=== PATIENT | female | born 1960 | race Caucasian/White ===

== ENCOUNTER 2021-12-03 23:03 | Emergency (ER) | payer OTHER ==
[2021-12-03 23:18] VITALS: BP 133/87; PULSE 109; TEMP 98.9; BMI 30.9
[2021-12-03] MEDS ORDERED: KETOROLAC TROMETHAMINE 30 MG/1 ML VIAL IM ONE (23:38)
[2021-12-03] MEDS ORDERED: CYCLOBENZAPRINE HCL 5 MG TABLET PO ONE (23:38)
[2021-12-03] MEDS ORDERED: KETOROLAC TROMETHAMINE 30 MG/1 ML VIAL ONE (23:57)
[2021-12-04] MEDS ORDERED: CYCLOBENZAPRINE HCL 10 MG TABLET (FP) ONE
[2021-12-04] MEDS ORDERED: CYCLOBENZAPRINE HCL 5 MG TABLET PO ONE (23:38)
== END 2021-12-04 01:11 | disposition home or self-care (01) ==
LOC: JER 23:03
PROC: 3E023GC Introduction of Other Therapeutic Substance into Muscle, Percutaneous Approach (ICD-10-PCS; principal; 2021-12-03)
DX: M54.2 Cervicalgia (principal); M54.89 Other dorsalgia; M25.511 Pain in right shoulder
CPT/HCPCS: 82962; 96372; 99284-25

== ENCOUNTER 2022-05-15 00:06 | Observation (INO) | payer OTHER ==
[2022-05-15 01:07] VITALS: TEMP 98.6; BMI 28.3
[2022-05-15 03:17] LABS: BASO % 0.7 % (0-2.0); EOS % 1.5 % (0-4.5); HEMATOCRIT 37.4 % (32.4-45.2); HEMOGLOBIN 12.4 GM/dL (10.7-15.3); LYMPH % 37.7 % (8-40); MCH 28.8 pg (25.7-33.7); MCHC 33.1 g/dl (32.0-36.0); MEAN CELL VOLUME 87.2 fl (80-96); MEAN PLT VOLUME 8.6 fl (7.5-11.1); MONO % 8.1 % (3.8-10.2); PLATELET COUNT 302 10^3/uL (134-434); RBC 4.29 M/mm3 (3.60-5.2); RDW 14.9 % (11.6-15.6); WHITE BLOOD COUNT 9.8 K/mm3 (4.0-10.0)
[2022-05-15 03:40] LABS: ALBUMIN 3.4 g/dl (3.4-5.0); BLOOD UREA NITROGEN 12.7 mg/dL (7-18); CALCIUM 8.9 mg/dL (8.5-10.1)
[2022-05-15 03:43] LABS: CREATININE 0.7 mg/dL (0.55-1.3)
[2022-05-15 03:44] LABS: BILIRUBIN,TOTAL 0.3 mg/dL (0.2-1); TOT PROT 7.8 g/dl (6.4-8.2)
[2022-05-15] MEDS ORDERED: ASPIRIN 81 MG CHEWABLE TABLETS PO ONE (06:02)
[2022-05-15] MEDS ORDERED: ASPIRIN 81 MG CHEWABLE TABLETS ONE (06:04)
[2022-05-15] MEDS ORDERED: ACETAMINOPHEN 325 MG TABLET (FP) PO PRN (08:18)
[2022-05-15] MEDS ORDERED: PANTOPRAZOLE 40 MG TABLET PO SCH (10:00)
[2022-05-15] MEDS ORDERED: TICAGRELOR 90 MG TABLET PO SCH (10:00)
[2022-05-15] MEDS ORDERED: ENOXAPARIN NA (PORCINE) 40 MG/0.4 ML DISP.SYRIN SQ SCH (10:00)
[2022-05-15] MEDS ORDERED: LOSARTAN 50MG/HCTZ 12.5MG 1 TAB PO SCH (10:00)
[2022-05-15] MEDS ORDERED: DULoxetine HCL 30 MG CAPSULE.DR PO SCH (10:00)
[2022-05-15] MEDS ORDERED: PANTOPRAZOLE 40 MG TABLET PO ONE (10:11)
[2022-05-15] MEDS ORDERED: TICAGRELOR 90 MG TABLET PO ONE (10:11)
[2022-05-15] MEDS ORDERED: ENOXAPARIN NA (PORCINE) 40 MG/0.4 ML DISP.SYRIN SQ ONE (10:12)
[2022-05-15] MEDS ORDERED: DULoxetine HCL 30 MG CAPSULE.DR PO ONE (10:12)
[2022-05-15] MEDS ORDERED: INSULIN SLIDING SCALE (NOVOLOG) 1 VIAL SQ SCH (11:00)
[2022-05-15 16:03] VITALS: BP 138/81; PULSE 78
[2022-05-16 00:49] LABS: N-TERMINAL BNP 178.4 pg/ml (5-125)
[2022-05-16] MEDS ORDERED: ASPIRIN 81 MG CHEWABLE TABLETS PO SCH (10:00)
== END 2022-05-15 19:00 | disposition left against medical advice (07) ==
LOC: JER 00:06 → JERBED 05:51
PROVIDERS: ADMIT Hospitalist; ATTEND Internal Medicine
PROC: 3E023GC Introduction of Other Therapeutic Substance into Muscle, Percutaneous Approach (ICD-10-PCS; principal; 2022-05-15)
DX: G43.909 Migraine, unspecified, not intractable, without status migrainosus (principal); I25.10 Atherosclerotic heart disease of native coronary artery without angina pectoris; R01.1 Cardiac murmur, unspecified; K21.9 Gastro-esophageal reflux disease without esophagitis; I11.9 Hypertensive heart disease without heart failure; G47.33 Obstructive sleep apnea (adult) (pediatric); Z95.5 Presence of coronary angioplasty implant and graft; E11.9 Type 2 diabetes mellitus without complications; N95.9 Unspecified menopausal and perimenopausal disorder; M62.81 Muscle weakness (generalized); Z88.6 Allergy status to analgesic agent
CPT/HCPCS: 36415; 70450-TC; 71046-TC-FY; 80053; 80061; 82962; 83036; 83880; 84443; 84484; 85025; 93005; 93010; 96372; 99285-25; C9803-CS; G0378; U0003; U0005